=== PATIENT | male | born 1990 | race Hispanic/Latino ===

== ENCOUNTER → 2022-04-04 | Outpatient (CLI) | payer OTHER ==
--- NOTE | 2022-04-04 18:13 | DIREP ---
PROCEDURE:XRAY ELBOW 2VWS-RT COMPARISON:ER On HANNY Davis, XRAY ELBOW MIN 3 VWS-RT, 12/12/2017, 06:38 PM. INDICATIONS:Z00.00 encounter for general adult medical examination without abnormal fin FINDINGS: BONES:No visible fracture. JOINTS:Normal. No displaced anterior or posterior fat pads. SOFT TISSUES:Normal. OTHER:Normal. CONCLUSION:Negative right elbow radiograph. Dictated by: Yves Nair M.D. on 04/04/2022 at 05:10 PM
--- NOTE | 2022-04-04 18:15 | DIREP ---
PROCEDURE:XRAY SHOULDER MIN 2 VWS-RT COMPARISON:None. INDICATIONS:Z00.00 encounter for general adult medical examination without abnormal fin FINDINGS: BONES:Normal. JOINTS:Normal glenohumeral joint. Normal acromioclavicular joint. No evidence for dislocation. SOFT TISSUES:Normal. OTHER:Normal. CONCLUSION:Negative right shoulder radiograph. Dictated by: Yves Nair M.D. on 04/04/2022 at 05:12 PM Read in [place]
--- NOTE | 2022-04-04 18:17 | DIREP ---
PROCEDURE:XRAY WRIST MIN 3VW-RT COMPARISON:None. INDICATIONS:Z00.00 encounter for general adult medical examination without abnormal fin FINDINGS: BONES:No visible fracture. JOINTS:Carpal alignment anatomic. SOFT TISSUES:Limited evaluation radiographically, no gross abnormality seen. OTHER:No additional findings. CONCLUSION:Negative right wrist radiograph. Dictated by: Yves Nair M.D. on 04/04/2022 at 05:14 PM Read in [place]
--- NOTE | 2022-04-04 18:18 | DIREP ---
PROCEDURE:XRAY SHOULDER MIN 2 VWS-LT COMPARISON:None. INDICATIONS:Z00.00 encounter for general adult medical examination without abnormal fin FINDINGS: BONES:Normal. JOINTS:Normal glenohumeral joint. Normal acromioclavicular joint. No evidence for dislocation. SOFT TISSUES:Normal. OTHER:Normal. CONCLUSION:Negative left shoulder radiograph. Dictated by: Yves Nair M.D. on 04/04/2022 at 05:15 PM Read in [place]
--- NOTE | 2022-04-04 18:19 | DIREP ---
PROCEDURE:XRAY ELBOW 2VWS-LT COMPARISON:None. INDICATIONS:Z00.00 encounter for general adult medical examination without abnormal fin FINDINGS: BONES:Normal. JOINTS:Normal. No displaced anterior or posterior fat pads. SOFT TISSUES:Normal. OTHER:Normal. CONCLUSION:Negative left elbow radiograph. Dictated by: Yves Nair M.D. on 04/04/2022 at 05:17 PM Read in [place]
--- NOTE | 2022-04-04 18:20 | DIREP ---
PROCEDURE:XRAY WRIST MIN 3VW-LT COMPARISON:None. INDICATIONS:Z00.00 encounter for general adult medical examination without abnormal fin FINDINGS: BONES:No visible fracture. JOINTS:Minimal triscaphe degenerative changes. SOFT TISSUES:Limited evaluation radiographically, no gross abnormality seen. OTHER:No additional findings. CONCLUSION:Minimal triscaphe degenerative changes otherwise negative left wrist radiograph. Dictated by: Yves Nair M.D. on 04/04/2022 at 05:17 PM Read in [place]
--- NOTE | 2022-04-04 18:23 | DIREP ---
PROCEDURE:XR SPINE CERVICAL COMP W/ OBLIQUES COMPARISON:None. INDICATIONS:Z00.00 encounter for general adult medical examination without abnormal fin TECHNIQUE:AP, lateral, bilateral oblique, and dens views of the cervical spine are provided. FINDINGS: ALIGNMENT:Mild reversal normal cervical lordosis centered at C5. VERTEBRAE:No compression fracture. DISK SPACES:Disc spaces are maintained. CERVICAL RIBS:None. OTHER:Odontoid view limited as odontoid tip obscured by dentition and skullbase.. CONCLUSION: Mild reversal of normal cervical lordosis which can be seen with positioning, spasm or strain. Dictated by: Yves Nair M.D. On 04/04/2022 at 05:18 PM Read in [place]
== END | disposition home or self-care (01) ==
LOC: RAD 13:13
PROVIDERS: ATTEND Nurse Practitioner
DX: Z00.00 Encounter for general adult medical examination without abnormal findings (principal)
CPT/HCPCS: 72050; 73030-LT; 73030-RT; 73070-LT; 73070-RT; 73110-LT; 73110-RT